=== PATIENT | male | born 1970 | race Two or more races ===

== ENCOUNTER 2020-11-10 09:20 | Emergency (ER) | payer MEDICAID, OTHER ==
[~2020-11-10] VITALS: Ht 167.6 cm; Wt 67.1 kg
[~2020-11-10 09:20] MED LIST: ACYC400T19; COMPLERA
--- NOTE | 2020-11-10 09:34 | NUR ---
The patient is bibs for c/o testicular pain and swelling x 2 days s/p unprotected sex. Denies any discharge. Rates pain 10. Will continue to monitor the patient.
--- NOTE | 2020-11-10 09:37 | NUR ---
Dr Winters at the bedside
--- NOTE | 2020-11-10 09:39 | NUR ---
ACCOMPANIED DR GARCIA FOR PHYSICAL EXAM OF PENIS AND SCROTUM,TOLERATED WELL
[2020-11-10] MEDS ORDERED: PENICILLIN G BENZATHINE 2.4 MMU/4 ML ML IM ONE ×2 (10:00→10:19)
[2020-11-10] MEDS ORDERED: CEFTRIAXONE 500 MG VIAL IM ONE (10:00)
--- NOTE | 2020-11-10 10:17 | NUR ---
u/s tech at bedside for scrotal ultrasound.
[2020-11-10] MEDS ORDERED: CEFTRIAXONE 500 MG VIAL ONE (10:19)
[2020-11-10] MEDS ORDERED: LIDOCAINE /MPF 1% VIAL 5 ML VIAL ONE (10:19)
--- NOTE | 2020-11-10 10:23 | NUR ---
still unable to urinate. provided w/ water.
[2020-11-10] MEDS ORDERED: AMOX-430 PO (11:12)
[2020-11-10] MEDS ORDERED: VALA10002 PO (11:12)
[2020-11-10] MEDS ORDERED: DOXY100C2 PO (11:12)
[2020-11-10] MEDS ORDERED: ACETAMINOPHEN ES 500 MG TABLET ONE (11:33)
--- NOTE | 2020-11-10 11:43 | NUR ---
Patient discharged to home in stable condition. Written and verbal after care instructions given. Patient verbalizes understanding of instruction. Pt ambulatory with a steady gait
[2020-11-10 11:44] VITALS: BP 135/82
[2020-11-10] MEDS ORDERED: ACETAMINOPHEN ES 500 MG TABLET PO ONE (12:00)
== END 2020-11-10 11:44 | disposition home or self-care (01) ==
LOC: ER 09:28
DX: A64 Unspecified sexually transmitted disease (principal); N50.89 Other specified disorders of the male genital organs; N49.2 Inflammatory disorders of scrotum; Z90.89 Acquired absence of other organs
CPT/HCPCS: 36415; 76870; 86592; 87491; 87591; 96372 ×2; 99284; J0558; J0696; J3490

== ENCOUNTER 2021-08-10 02:30 | Emergency (ER) | payer MEDICAID ==
[~2021-08-10] VITALS: Ht 167.6 cm; Wt 70.3 kg
[~2021-08-10 02:30] MED LIST changes: +AMOX-430 PO; +DOXY100C2 PO; +VALA10002 PO
--- NOTE | 2021-08-10 03:55 | NUR ---
TO ER BED 11. BIBSELF C/O LOWER BACK PAIN X 1 WEEK. NOT RELIEVED BY OTC MEDS. WORSE WITH MOVEMENT. PAIN 10/10 ON P/S. CONNECTED TO MONITOR. AWAITING MD MCCRACKEN
[2021-08-10] MEDS ORDERED: CYCLOBENZAPRINE 10 MG TABLET PO ONE (04:00)
[2021-08-10] MEDS ORDERED: KETOROLAC TROMETHAMINE INJ 60 MG/2 ML VIAL IM ONE ×2 (04:00→04:25)
[2021-08-10] MEDS ORDERED: DEXAMETHASONE SOD PHOSPHATE 4 MG/ML VIAL IM ONE (04:00)
[2021-08-10] MEDS ORDERED: CYCL10TA9 PO (04:07)
[2021-08-10] MEDS ORDERED: PRED50TA PO (04:07)
[2021-08-10] MEDS ORDERED: IBUP-1957 PO (04:07)
[2021-08-10] MEDS ORDERED: DEXAMETHASONE SOD PHOSPHATE 10 MG/ML VIAL ONE (04:25)
[2021-08-10] MEDS ORDERED: CYCLOBENZAPRINE 10 MG TABLET ONE (04:26)
[2021-08-10 04:56] VITALS: BP 151/87
--- NOTE | 2021-08-10 04:56 | NUR ---
Patient discharged to home in stable condition. Written and verbal after care instructions given. Patient verbalizes understanding of instruction.
== END 2021-08-10 04:57 | disposition home or self-care (01) ==
LOC: ER 02:39
DX: M54.6 Pain in thoracic spine (principal); Z90.89 Acquired absence of other organs; Z79.899 Other long term (current) drug therapy
CPT/HCPCS: 96372 ×2; 99284; J1100; J1885

== ENCOUNTER 2022-01-24 12:46 | Emergency (ER) | payer MEDICAID ==
[~2022-01-24] VITALS: Ht 170.2 cm; Wt 72.6 kg
[~2022-01-24 12:46] MED LIST changes: +CYCL10TA9 PO; +IBUP-1957 PO; +PRED50TA PO
[2022-01-24 13:28] VITALS: BP 124/90
[2022-01-24] MEDS ORDERED: SULF1TAB48 PO (14:23)
--- NOTE | 2022-01-24 14:35 | NUR ---
SEEN AND EVALUATED BY DR MOONEY, ABSCESS DRAINED. PROVIDED WITH WOUND CARE. DISCHARGE WITH PRESCRIPTION IN STABLE CONDITION.
== END 2022-01-24 14:37 | disposition home or self-care (01) ==
LOC: ER 12:53
DX: L02.413 Cutaneous abscess of right upper limb (principal); Z90.89 Acquired absence of other organs; Z79.899 Other long term (current) drug therapy

== ENCOUNTER 2024-12-28 05:32 | Emergency (ER) | payer BC, MEDICAID ==
[~2024-12-28 05:32] MED LIST changes: +SULF1TAB48 PO
== END 2024-12-28 05:58 | disposition left against medical advice (07) ==
LOC: ER 05:39
DX: M25.512 Pain in left shoulder (principal); Z53.21 Procedure and treatment not carried out due to patient leaving prior to being seen by health care provider